=== PATIENT | female | born 1975 | race Caucasian/White ===

== ENCOUNTER 2018-04-29 18:15 | Emergency (ER) | payer SELFPAY ==
[~2018-04-29] VITALS: Ht 157.5 cm; Wt 71.0 kg
--- NOTE | 2018-04-29 18:35 | NUR ---
PT CALLED ONCE FROM TRIAGE, IN RESTROOM.
[2018-04-29 19:34] VITALS: BP 141/81
== END 2018-04-29 19:35 | disposition home or self-care (01) ==
LOC: ED 19:05
DX: H92.01 Otalgia, right ear (principal); J01.10 Acute frontal sinusitis, unspecified; J01.00 Acute maxillary sinusitis, unspecified
CPT/HCPCS: 99283